=== PATIENT | female | born 1980 | race Caucasian/White ===

== ENCOUNTER → 2016-11-15 10:26 | Outpatient (CLI) | payer MEDICAID ==
--- NOTE | 2016-11-22 14:16 | ST ---
PATIENT:HAM PALACIOS MEDICAL RECORD: [id number] SEX: F LOCATION:[facility] ORDER #: ADMISSION DATE: 11/15/16 AGE OF PATIENT: 36 REFERRING PHYSICIAN: INTERPRETING PHYSICIAN: JAQUAN GONZALES MD DATE OF SERVICE: 11/15/2016 Nuclear Stress Test INDICATION: Chest pain of unknown etiology. She was exercised on standard Lexiscan protocol with 30.4 mCi of sestamibi injected at peak stress, 12.8 mCi were done previously for rest images. FINDINGS: Gated SPECT reveals preserved ejection fraction greater than 60% with good wall motion and thickening, and brightening throughout all segments. SPECT imaging sestamibi is used as myocardial perfusion agent. There is homogeneous uptake throughout all segments at rest and stress with no evidence of inducible ischemia or previous infarction. OVERALL IMPRESSION: 1. This is a normal nuclear stress test with no evidence of inducible ischemia or previous infarction. 2. Gated SPECT reveals a preserved ejection fraction greater than 60%. This patient with ongoing symptomatology, the current scan does not suggest the presence of hemodynamically significant coronary artery disease. We would evaluate noncardiac etiology of chest pain. 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
== END | disposition home or self-care (01) ==
LOC: D.NM 10:26
DX: R07.9 Chest pain, unspecified (principal); R06.02 Shortness of breath